=== PATIENT | female | born 1955 | race Caucasian/White ===

== ENCOUNTER → 2018-06-21 08:14 | Outpatient (CLI) | payer OTHER, SELFPAY ==
[2018-06-21 09:41] LABS: Add Manual Diff / Slide Review NO; Basophils Percent Auto 0.4 % (0-2); Eosinophils Percent Auto 1.8 % (2-4); Hematocrit 44.2 % (36-46); Lymphocytes Percent Auto 34.3 % (25-40); Mean Corpuscular Hemoglobin 31.7 PG (26-34); Mean Corpuscular Volume 93.3 fL (80-100); Monocytes Percent Auto 6.9 % (3-14); Neutrophils Absolute Auto 2800 /uL (3000-5900); Neutrophils Percent Auto 56.6 % (50-75); Platelet Count 183 X10^3/uL (150-400); Red Blood Cell Count 4.73 X10^6/uL (4.0-5.2); Red Cell Distribution Width 12.5 % (11.6-14.8)
[2018-06-21 10:01] LABS: Alanine Aminotransferase 24 IU/L (9-52); Albumin 4.3 g/dL (3.5-5.0); Albumin Globulin Ratio 1.4 (1.0-2.8); Alkaline Phosphatase 53 U/L (38-126); Aspartate Aminotransferase 33 IU/L (14-36); Bilirubin Total 0.6 mg/dL (0.2-1.3); Blood Urea Nitrogen 20 mg/dL (7-17); Calcium 9.2 mg/dL (8.4-10.2); Carbon Dioxide 32 mmol/L (22-32); Chloride 103 mmol/L (98-107); Cholesterol 244 mg/dL (140-199); Estimated Glomerular Filt Rate > 60.0 mL/min (>60); Glucose 89 mg/dL (80-110); HDL Cholesterol 76 mg/dL (40-60); HEMOLYSIS < 15 (0-50); LDL Cholesterol Calculated 150 mg/dL (<100); Sodium 143 mmol/L (137-145); Total Protein 7.3 g/dL (6.3-8.2); Triglycerides 90 mg/dL (35-150)
[2018-06-21 10:26] LABS: Thyroid Stimulating Hormone 2.34 uIU/mL (0.47-4.68)
== END ==
PROVIDERS: Family Provider Physician Assistant; PCP Physician Assistant; Visit Provider Naturopath
DX: M81.0 Age-related osteoporosis without current pathological fracture (principal); Z00.00 Encounter for general adult medical examination without abnormal findings
CPT/HCPCS: 36415; 80053; 80061; 84443; 85025

== ENCOUNTER → 2018-06-22 13:14 | Outpatient (CLI) | payer OTHER, SELFPAY | PROVIDERS: Family Provider Physician Assistant; PCP Physician Assistant; Visit Provider Naturopath | DX: M81.0 Age-related osteoporosis without current pathological fracture (principal); Z78.0 Asymptomatic menopausal state | CPT/HCPCS: 77080 ==

== ENCOUNTER → 2018-09-01 15:31 | Outpatient (CLI) | payer OTHER, SELFPAY ==
--- NOTE | 2018-09-01 | DI.MG.S_ITS ---
BILATERAL DIGITAL SCREENING MAMMOGRAM 3D/2D WITH CAD: 09/01/2018 CLINICAL: Routine screening. Comparison is made to exams dated: 08/26/2014 mammogram and 09/29/2011 mammogram - [facility]. There are scattered fibroglandular elements in both breasts. Current study was also evaluated with a Computer Aided Detection (CAD) system. No significant masses, calcifications, or other findings are seen in either breast. There has been no significant interval change. IMPRESSION: NEGATIVE There is no mammographic evidence of malignancy. A 1 year screening mammogram is recommended. This exam was interpreted at Station ID: [id number]. NOTE: For mammograms, a report in lay terms will be sent to the patient. Approximately 15% of breast malignancies will not be visualized mammographically. In the management of a palpable breast mass, a negative mammogram must not discourage biopsy of a clinically suspicious lesion. Electronically Signed By: Mono guerrero/jenise:09/01/2018 16:17:21 letter sent: Normal Exam ACR BI-RADS Category 1: Negative 3341F
== END ==
PROVIDERS: Visit Provider Naturopath
DX: Z12.31 Encounter for screening mammogram for malignant neoplasm of breast (principal)
CPT/HCPCS: 77063; 77067

== ENCOUNTER → 2020-09-24 08:06 | Outpatient (CLI) | payer MEDICARE, OTHER, SELFPAY ==
--- NOTE | 2020-09-24 | DI.MG.S_ITS ---
BILATERAL DIGITAL SCREENING MAMMOGRAM 3D/2D WITH CAD: 09/24/2020 CLINICAL: Routine screening. Comparison is made to exams dated: 09/01/2018 mammogram - [facility], 08/26/2014 mammogram, and 09/29/2011 mammogram - [facility]. There are scattered fibroglandular elements in both breasts. Current study was also evaluated with a Computer Aided Detection (CAD) system. No significant masses, calcifications, or other findings are seen in either breast. There has been no significant interval change. IMPRESSION: NEGATIVE There is no mammographic evidence of malignancy. A 1 year screening mammogram is recommended. This exam was interpreted at Station ID: [id number]. NOTE: For mammograms, a report in lay terms will be sent to the patient. Approximately 15% of breast malignancies will not be visualized mammographically. In the management of a palpable breast mass, a negative mammogram must not discourage biopsy of a clinically suspicious lesion. Electronically Signed By: Rodney Walker M.D., jr/jenise:09/24/2020 11:59:49 letter sent: Normal Exam ACR BI-RADS Category 1: Negative 3341F
== END ==
PROVIDERS: PCP Naturopath; Referring Provider Naturopath; Visit Provider Naturopath
DX: Z12.31 Encounter for screening mammogram for malignant neoplasm of breast (principal)
CPT/HCPCS: 77063; 77067

== ENCOUNTER → 2020-11-13 07:16 | Outpatient (CLI) | payer MEDICARE, OTHER, SELFPAY ==
[2020-11-13 07:58] LABS: Hematocrit 44.6 % (36-46); Hemoglobin 14.8 g/dL (12.0-16.0); Mean Corpuscular HGB Conc 33.2 % (30-36); Mean Corpuscular Hemoglobin 31.3 PG (26-34); Mean Corpuscular Volume 94.3 fL (80-100); Platelet Count 169 X10^3/uL (150-400); Red Blood Cell Count 4.73 X10^6/uL (4.0-5.2); Red Cell Distribution Width 12.9 % (11.6-14.8); White Blood Cell Count 4.3 X10^3/uL (4.5-11.0)
[2020-11-13 08:10] LABS: Alanine Aminotransferase 19 IU/L (<35); Albumin 4.3 g/dL (3.5-5.0); Albumin Globulin Ratio 1.7 (1.0-2.8); Alkaline Phosphatase 47 U/L (38-126); Aspartate Aminotransferase 33 IU/L (14-36); BUN Creatinine Ratio 19.2 (6-22); Bilirubin Total 0.4 mg/dL (0.2-1.3); Blood Urea Nitrogen 15 mg/dL (7-17); Calcium 9.6 mg/dL (8.4-10.2); Carbon Dioxide 29 mmol/L (22-32); Chloride 106 mmol/L (98-107); Cholesterol 256 mg/dL (140-199); Estimated Glomerular Filt Rate > 60.0 mL/min (>60); Globulin 2.5 g/dL (1.7-4.1); Glucose 91 mg/dL (80-110); HDL Cholesterol 88 mg/dL (40-60); HEMOLYSIS < 15 (0-50); LDL Cholesterol Calculated 155 mg/dL (<100); Potassium 4.3 mmol/L (3.4-5.1); Sodium 140 mmol/L (137-145); Total Protein 6.8 g/dL (6.3-8.2); Triglycerides 66 mg/dL (35-150)
[2020-11-13 08:41] LABS: TSH w/ Reflex to FT4 2.23 uIU/mL (0.47-4.68)
== END ==
PROVIDERS: PCP Registered Nurse Diabetes Educator; Referring Provider Registered Nurse Diabetes Educator; Visit Provider Registered Nurse Diabetes Educator
DX: Z00.00 Encounter for general adult medical examination without abnormal findings (principal)
CPT/HCPCS: 36415; 80053; 80061; 84443; 85027

== ENCOUNTER → 2020-11-19 13:14 | Outpatient (CLI) | payer MEDICARE, OTHER, SELFPAY ==
--- NOTE | 2020-11-19 13:16 | DI.RAD.S_ITS ---
PROCEDURE: XR DEXA AXIAL SKELETON INDICATIONS: hx osteoporosis COMPARISON: [facility], CR, XR DEXA AXIAL SKELETON, 06/22/2018, 13:49. FINDINGS: This blank DEXA report has been sent in error by the PACS system. The correct and complete report will be forthcoming in 1-2 days. Thank you for your patience and understanding. Dictated by: Ayanna Cooper MD, PhD on 11/19/2020 at 17:28 Approved by: Ayanna Cooper MD, PhD on 11/19/2020 at 17:28
== END ==
PROVIDERS: PCP Registered Nurse Diabetes Educator; Referring Provider Registered Nurse Diabetes Educator; Visit Provider Registered Nurse Diabetes Educator
DX: M81.0 Age-related osteoporosis without current pathological fracture (principal); Z78.0 Asymptomatic menopausal state
CPT/HCPCS: 77080

== ENCOUNTER → 2021-11-11 12:54 | Outpatient (CLI) | payer MEDICARE, OTHER, SELFPAY | PROVIDERS: PCP Registered Nurse Diabetes Educator; Referring Provider Registered Nurse Diabetes Educator; Visit Provider Registered Nurse Diabetes Educator | DX: M81.0 Age-related osteoporosis without current pathological fracture (principal); Z78.0 Asymptomatic menopausal state | CPT/HCPCS: 77080 ==

== ENCOUNTER → 2021-12-04 07:36 | Outpatient (CLI) | payer MEDICARE, OTHER, SELFPAY ==
[2021-12-04 08:26] LABS: Cholesterol 243 mg/dL (140-199); HDL Cholesterol 82 mg/dL (40-60); LDL Cholesterol Calculated 142 mg/dL (<100); Triglycerides 96 mg/dL (35-150)
== END ==
PROVIDERS: PCP Registered Nurse Diabetes Educator; Referring Provider Registered Nurse Diabetes Educator; Visit Provider Registered Nurse Diabetes Educator
DX: E78.00 Pure hypercholesterolemia, unspecified (principal)
CPT/HCPCS: 36415; 80061

== ENCOUNTER → 2023-09-28 16:07 | Outpatient (CLI) | payer MEDICARE, OTHER, SELFPAY ==
--- NOTE | 2023-09-28 16:09 | DI.MG.S_ITS ---
BILATERAL DIGITAL SCREENING MAMMOGRAM 3D/2D WITH CAD: 09/28/2023 CLINICAL: Routine screening. Comparison is made to exams dated: 09/24/2020 mammogram and 09/01/2018 mammogram - [facility]. There are scattered areas of fibroglandular density in both breasts (category b / 25%-50% glandular tissue). Current study was also evaluated with a Computer Aided Detection (CAD) system. No significant masses, calcifications, or other findings are seen in either breast. There has been no significant interval change. IMPRESSION: NEGATIVE There is no mammographic evidence of malignancy. A 1 year screening mammogram is recommended. Based on the Tyrer Cuzick model (a risk assessment model) the patient's lifetime risk is 3.5% and her 10 year risk is 1.9%. According to the ACR, ACS, and NCCN guidelines, an annual breast MRI exam along with mammogram is recommended if the patient's lifetime risk is 20% or greater. This exam was interpreted at Station ID: [id number]. NOTE: For mammograms, a report in lay terms will be sent to the patient. Approximately 15% of breast malignancies will not be visualized mammographically. In the management of a palpable breast mass, a negative mammogram must not discourage biopsy of a clinically suspicious lesion. Electronically Signed By: Gerson bain/jenise:09/29/2023 15:14:28 letter sent: Normal Exam ACR BI-RADS Category 1: Negative 3341F
== END ==
PROVIDERS: PCP Family Medicine; Referring Provider Family Medicine; Visit Provider Family Medicine
DX: Z12.31 Encounter for screening mammogram for malignant neoplasm of breast (principal); R92.323 Mammographic fibroglandular density, bilateral breasts
CPT/HCPCS: 77063; 77067

== ENCOUNTER → 2023-11-14 09:44 | Outpatient (CLI) | payer MEDICARE, OTHER, SELFPAY ==
--- NOTE | 2023-11-14 09:46 | DI.RAD.S_ITS ---
Bone Density Report Name: JESSICA YEPEZ Age: 68 Sex: Female Ethnicity: White Date of : 1955 Indication: postmenopausal osteoporosis; monitoring treatment; Referring Provider: DOLORES BARRETO Study: Bone densitometry was performed. Exam Date: November 14, 2023 Accession number: [id number] Bone Density: Region BMD T-score Z-score Classification AP Spine(L1, L2, L3) 0.740 -2.5 -0.6 Osteoporosis Femoral Neck (Left) 0.508 -3.1 -1.3 Osteoporosis Total Hip (Left) 0.548 -3.2 -1.8 Osteoporosis Femoral Neck (Right) 0.544 -2.7 -1.0 Osteoporosis Total Hip (Right) 0.579 -3.0 -1.5 Osteoporosis Total Hip Mean 0.563 -3.1 -1.7 Osteoporosis World Health Organization criteria for BMD impression classify patients as: Normal (T-score at or above -1.0), Osteopenia (T-score between -1.0 and -2.5), or Osteoporosis (T-score at or below -2.5). 10-year Fracture Risk: FRAX not reported because: Some T-score for Spine Total or Hip Total or Femoral Neck at or below -2.5 Treated for osteoporosis Previous Exams: -- Region Exam Age BMD T-score BMD Change BMD Change Date g/cm2 vs Baseline vs Previous -- AP Spine (L1-L3) 11/14/2023 68 0.740 -2.5 0.049 (7.1%)# -0.003 (-0.4%)# 11/11/2021 66 0.743 -2.5 0.052 (7.6%)# 0.004 (0.6%)# 11/19/2020 65 0.739 -2.5 0.048 (6.9%)* 0.048 (6.9%)* 06/22/2018 63 0.691 -3.0 Total Hip(Left) 11/14/2023 68 0.548 -3.2 -0.036 (-6.2%)# -0.016 (-2.9%)# 11/11/2021 66 0.564 -3.1 -0.020 (-3.4%)# 0.016 (3.0%)# 11/19/2020 65 0.548 -3.2 -0.036 (-6.2%)* -0.036 (-6.2%)* 06/22/2018 63 0.584 -2.9 Total Hip(Right) 11/14/2023 68 0.579 -3.0 0.006 (1.0%)# -0.010 (-1.7%)# 11/11/2021 66 0.589 -2.9 0.016 (2.8%)# 0.046 (8.5%)# 11/19/2020 65 0.543 -3.3 -0.030 (-5.3%)* -0.030 (-5.3%)* 06/22/2018 63 0.573 -3.0 -- *Denotes significance at 95% confidence level, LSC for AP Spine = 0.022 g/cm2, LSC for Total Hip = 0.027 g/cm2 Rate of change results reflect vertebral levels common to all scans # Denotes dissimilar scan types or analysis methods Impression: The patient has osteoporosis, based on the Left Total Hip T-score. No significant bone loss was observed. Discussion: PATIENT UNDER TREATMENT WITH NO SIGNIFICANT BMD LOSS SINCE LAST EXAM. In an untreated patient, BMD typically declines with age. A lack of decline or gain is usually a sign that treatment is efficacious and fracture risk is reduced. It is important to ask patients whether they are taking their medications and to encourage continued and appropriate compliance with their osteoporosis therapies to reduce fracture risk. It is also important to review their risk factors and encourage appropriate calcium and vitamin D intakes, exercise, fall prevention and other lifestyle measures. Follow-Up: Consider a repeat BMD and Vertebral Fracture Assessment (VFA) exam in 2 years or sooner if medically necessary, to reassess this patient's status. Reported by: DAJUAN MCCRACKEN M.D. on 11/14/2023 10:13:00 AM.
== END ==
LOC: RAD 09:45
PROVIDERS: PCP Family Medicine; Referring Provider Family Medicine; Visit Provider Family Medicine
DX: M81.0 Age-related osteoporosis without current pathological fracture (principal); N95.9 Unspecified menopausal and perimenopausal disorder
CPT/HCPCS: 77080

== ENCOUNTER → 2023-11-23 07:53 | Outpatient (CLI) | payer MEDICARE, OTHER, SELFPAY ==
[2023-11-23 09:47] LABS: Alanine Aminotransferase 23 IU/L (<35); Albumin 3.8 g/dL (3.5-5.0); Albumin Globulin Ratio 1.4 (1.0-2.8); Alkaline Phosphatase 52 U/L (38-126); Aspartate Aminotransferase 32 IU/L (14-36); BUN Creatinine Ratio 21.1 (6-22); Bilirubin Total 0.5 mg/dL (0.2-1.3); Blood Urea Nitrogen 16 mg/dL (7-17); Calcium 9.1 mg/dL (8.4-10.2); Carbon Dioxide 28 mmol/L (22-32); Chloride 108 mmol/L (98-107); Cholesterol 229 mg/dL (140-199); Estimated Glomerular Filt Rate > 60 mL/min (>60); Globulin 2.7 g/dL (1.7-4.1); Glucose 88 mg/dL (80-110); HDL Cholesterol 85 mg/dL (40-60); HEMOLYSIS < 15 (0-50); LDL Cholesterol Calculated 134 mg/dL (<100); Potassium 4.7 mmol/L (3.4-5.1); Sodium 138 mmol/L (137-145); Total Protein 6.5 g/dL (6.3-8.2); Triglycerides 49 mg/dL (35-150)
[2023-11-23 09:52] LABS: High Sensitivity CRP - Cardiac 0.8 mg/L (1.0-3.0)
[2023-11-23 10:16] LABS: TSH w/ Reflex to FT4 1.79 uIU/mL (0.47-4.68)
== END ==
LOC: LAB 07:54
PROVIDERS: PCP Family Medicine; Referring Provider Family Medicine; Visit Provider Family Medicine
DX: E78.00 Pure hypercholesterolemia, unspecified (principal); M81.0 Age-related osteoporosis without current pathological fracture; L65.9 Nonscarring hair loss, unspecified
CPT/HCPCS: 36415; 80053; 80061; 84443; 86140

== ENCOUNTER → 2024-12-31 07:20 | Outpatient (CLI) | payer MEDICARE, OTHER, SELFPAY ==
[2024-12-31 08:15] LABS: Hematocrit 42.7 % (36-46); Hemoglobin 14.4 g/dL (12.0-16.0); Mean Corpuscular HGB Conc 33.8 % (30-36); Mean Corpuscular Hemoglobin 31.7 PG (26-34); Platelet Count 174 X10^3/uL (150-400); Red Blood Cell Count 4.54 X10^6/uL (4.0-5.2); Red Cell Distribution Width 13.3 % (11.6-14.8); White Blood Cell Count 4.2 X10^3/uL (4.5-11.0)
[2024-12-31 08:34] LABS: Alanine Aminotransferase 28 IU/L (<35); Albumin 4.2 g/dL (3.5-5.0); Albumin Globulin Ratio 1.8 (1.0-2.8); Alkaline Phosphatase 53 U/L (38-126); Aspartate Aminotransferase 39 IU/L (14-36); Bilirubin Total 0.6 mg/dL (0.2-1.3); Blood Urea Nitrogen 17 mg/dL (7-17); Calcium 9.2 mg/dL (8.4-10.2); Carbon Dioxide 27 mmol/L (22-32); Chloride 107 mmol/L (98-107); Cholesterol 240 mg/dL (140-199); Estimated Glomerular Filt Rate > 60 mL/min (>60); Globulin 2.4 g/dL (1.7-4.1); Glucose 89 mg/dL (70-99); HDL Cholesterol 88 mg/dL (40-60); HEMOLYSIS < 15 (0-50); LDL Cholesterol Calculated 138 mg/dL (<100); Potassium 4.4 mmol/L (3.4-5.1); Sodium 139 mmol/L (137-145); Total Protein 6.6 g/dL (6.3-8.2); Triglycerides 71 mg/dL (35-150)
[2024-12-31 08:49] LABS: Follicle Stimulating Hormone 20.8 mIU/mL
[2024-12-31 09:05] LABS: Testosterone 42.5 ng/dL (5.71-77.0)
[2025-01-01 05:39] LABS: CRP, High Sensitivity 1.29 mg/L (0.00-3.00)
[2025-01-01 07:36] LABS: Insulin Level Total 2.5 uIU/mL (2.6-24.9)
[2025-01-03 13:13] LABS: N-telo/Creat. Ratio 15 (0-89); N-telopeptide 172 nmol BCE (Not Estab.)
[2025-01-04 15:10] LABS: Estradiol, Sensitive 88.3 pg/mL (.)
== END ==
PROVIDERS: PCP Family Medicine; Referring Provider Family Medicine; Visit Provider Family Medicine
DX: E78.00 Pure hypercholesterolemia, unspecified (principal); M81.0 Age-related osteoporosis without current pathological fracture; Z00.01 Encounter for general adult medical examination with abnormal findings; N95.1 Menopausal and female climacteric states; E88.810 Metabolic syndrome; E66.9 Obesity, unspecified
CPT/HCPCS: 36415; 80053; 80061; 82306; 82523; 82627; 82670; 83001; 83525; 84403; 85027; 86140

== ENCOUNTER → 2025-01-09 14:27 | Outpatient (CLI) | payer MEDICARE, OTHER, SELFPAY ==
--- NOTE | 2025-01-09 14:29 | DI.RAD.S_ITS ---
PROCEDURE: XR DEXA AXIAL SKELETON INDICATIONS: breast cancer screening COMPARISON: [facility], CR, XR DEXA AXIAL SKELETON, 11/14/2023, 10:01. FINDINGS: Lumbar Spine: Bone mineral density 0.810 (previously 0.740) g/cm2, T score -1.9 (previously -2.5). Left Femoral Neck: Bone mineral density 0.559 (previously 0.508) g/cm2, T score -2.6 (previously -3.1). Left Hip: Bone mineral density 0.598 (previously 0.548) g/cm2, T score -2.8 (previously -3.2). Fracture Risk Calculation (when applicable): 10-year fracture risk of a major osteoporotic fracture 15 percent and of a hip fracture 3.8 percent. (T score greater or equal to -1.0 to: NORMAL) (T score from -1.1 to -2.4: OSTEOPENIA) (T score less than or equal to -2.5: OSTEOPOROSIS) IMPRESSION: Osteoporosis--- recommend repeat DEXA in 2 years or less for reassessment of response to treatment. Follow-up guidelines as follows: Osteoporosis: Consider a repeat DEXA and Vertebral Fracture Assessment (VFA) exam in 2 years or sooner if medically necessary, to reassess this patient's status. Osteopenia: Consider a repeat DEXA in 2-3 years to reassess this patient's status, or if there is a new clinical indication. Normal: Consider a repeat DEXA in 5 years or sooner, or if there is a new clinical indication. All treatment decisions require clinical judgment and consideration of individual patient factors, including patient preferences, comorbidities, previous drug use, risk factors not captured in the FRAX model (e.g., frailty, falls, vitamin D deficiency, increased bone turnover, interval significant decline in bone density ) and possible under- or over-estimation of fracture risk by FRAX. In addition, the NOF Guide recommends that FDA-approved medical therapies be considered in postmenopausal women and men age >= 50 years with a: * Hip or vertebral (clinical or morphometric) fracture * T-score of <=-2.5 at the spine or hip * Ten-year fracture probability by FRAX of >= 3% for hip fracture or >=20% for major osteoporotic fracture. Dictated by: Sundar Mariscal M.D. on 01/09/2025 at 21:30 Approved by: Sundar Mariscal M.D. on 01/09/2025 at 21:33
--- NOTE | 2025-01-09 14:39 | DI.MG.S_ITS ---
MM screening mammo BI: 01/09/2025. BI-RADS: 1 CLINICAL: 69-year old female for bilateral screening mammogram. Tyrer-Cuzick lifetime risk of 3.0%. No personal or first-degree family history of breast cancer. PRIOR EXAMS 09/28/2023, 09/24/2020, 09/01/2018. MAMMOGRAPHY TECHNIQUE: 2D and 3D (tomosynthesis) digital mammographic views obtained, with additional images as needed for full coverage. Current study was also evaluated with a Computer Aided Detection (CAD) system. DENSITY B. There are scattered areas of fibroglandular density. MAMMOGRAPHY FINDINGS Bilateral: No suspicious mass, asymmetry, microcalcification, or other abnormality seen. IMPRESSION: * No evidence of malignancy. RECOMMENDATIONS Bilateral * Annual screening mammography. OVERALL ASSESSMENT CATEGORY BI-RADS-1: Negative. The [employer] recommends annual screening mammography beginning at age 40 for women with average risk of breast cancer. ELECTRONICALLY SIGNED: Keshia Centeno M.D. on 01/14/2025 at 12:58:25 AM PT Interpreting Station ID: [id number]
== END ==
LOC: MAMMO 14:29
PROVIDERS: PCP Family Medicine; Referring Provider Family Medicine; Visit Provider Family Medicine
DX: M81.0 Age-related osteoporosis without current pathological fracture (principal); Z12.31 Encounter for screening mammogram for malignant neoplasm of breast; Z00.01 Encounter for general adult medical examination with abnormal findings; E78.00 Pure hypercholesterolemia, unspecified; N95.1 Menopausal and female climacteric states
CPT/HCPCS: 77063; 77067; 77080

== ENCOUNTER → 2025-03-20 12:56 | Outpatient (CLI) | payer MEDICARE, OTHER, SELFPAY ==
--- NOTE | 2025-03-20 12:57 | DI.US.S_ITS ---
PROCEDURE: US EXTREMITY NONVASC LOWER LT INDICATIONS: left anterior knee pain TECHNIQUE: Real-time scanning was performed of the medial left knee , with image documentation. COMPARISON: None. FINDINGS: At the area of concern, there is a 2.4 x 1.2 x 1.1 cm cystic structure. Popliteal vein unremarkable. IMPRESSION: Popliteal cyst Approved by: Cale Hernandez M.D. on 03/21/2025 at 15:16
== END ==
PROVIDERS: PCP Family Medicine; Referring Provider Family Medicine; Visit Provider Family Medicine
DX: M71.22 Synovial cyst of popliteal space [Baker], left knee (principal); M25.562 Pain in left knee
CPT/HCPCS: 76882

== ENCOUNTER 2025-07-08 15:17 | Emergency (ER) | payer MEDICARE, OTHER, SELFPAY ==
[2025-07-08 15:50] VITALS: BP 191/90; PULSE 64; RESP 18; TEMP 36.5; O2SAT 96
--- NOTE | 2025-07-08 15:56 | ED_ITS ---
HPI - General Adult General Chief complaint: Hypertension Stated complaint: High bp 192/119 Time Seen by Provider: 07/08/25 15:56 Source: patient Mode of arrival: Ambulatory History of Present Illness HPI narrative: 70-year-old woman recently diagnosed with hypertension started on 10 mg of lisinopril. Notes that over the last month her blood pressures have been high with numbers that she is measured at home as high as 190/110. In the emergency department she is 190/80. She is having no symptoms with this. No chest pain, exertional dyspnea, lower extremity edema, headaches, vision changes, any acute neurologic findings. She is tolerating the 10 mg of lisinopril without difficulty. Related Data Home Medications ?Medication ?Instructions ?Recorded ?Confirmed calcium 600 mg (as 1 sgl PO #0 caps 06/24/16 carbonate)-vitamin D3 10 mcg (400 unit) capsule (Calcium with Vitamin D3) carditone PO 10/20/20 04/10/25 Previous Rx's ?Medication ?Instructions ?Recorded estradiol 0.025 mg/24 hr weekly 1 patch transdermal QW [place] #12 ea 04/10/25 transdermal patch progesterone micronized 100 mg 100 - 200 mg (1 - 2 x 1 00 mg) PO 04/19/25 capsule BEDTIME #180 caps lisinopril 10 mg tablet 10 mg PO DAILY #90 tabs 03/30 02/20 estradiol 0.01% (0.1 mg/gram) 1 g vaginal 3XW #42.5 gr ams 05/22/25 vaginal cream hydrochlorothiazide 12.5 mg capsule 12.5 mg PO DAILY # 30 caps 07/08/25 lisinopril 20 mg tablet 20 mg PO DAILY #30 tabs 06/29 Allergies Allergy/AdvReac Type Severity Reaction Status Date / Time No Known Drug Allergies Allergy Verified 07/08/25 15:53 Review of Systems Review of Systems Narrative: Pertinent positive and negative findings as per HPI Patient History Medical History Tick bite of female breast Wrist fracture, right Fracture of left distal radius Elevated LDL cholesterol level Rosacea Atrophic vaginitis Hearing loss Actinic keratosis (~2015) Osteoporosis (~2011) Mumps Measles Tinnitus (~2013) Surgical History Anesthesia History of section (~1976) S/P wrist surgery (~2008) S/P wrist surgery (~2015) Family History Father Hypertension Hyperlipidemia Mother Hypertension Stroke Social History marital status: number of children: 2 household members: spouse lives independently: Yes pets and animals: Yes current occupational exposures/hazards: No special leonila needs: No travel history: recent leisure activities: exercise, art, music, games and reading seatbelt use: always helmet use: Yes water heater temp set < 120 deg: Yes working smoke detector in home: Yes fire extinguisher in home: Yes carbon monox detector in home: Yes firearms in home: No do you feel safe at home: Yes second hand exposure: No alcohol intake: current (1 drink per week ) substance use type: does not use during the past year weight has: remained stable well-balanced diet: daily or most days daily servings fruits/ve or more times/day caffeine: Yes eating out: 1-3 times/week Type(s) of exercise: walking, aerobic, bicycling, regular exercise, resistance training, running, yoga and advised to exercise at least 150 min/week (moderate intensity aerobic) frequency: 3-4 times per week duration: 45-60 minutes/day Exam Initial Vital Signs Initial Vital Signs: Vital Signs Temperature 97.7 F 07/08/25 15:50 Pulse Rate 64 07/08/25 15:50 Respiratory Rate 18 07/08/25 15:50 Blood Pressure 191/90 H 07/08/25 15:50 Pulse Oximetry 96 07/08/25 15:50 Oxygen Delivery Method Room Air 07/08/25 15:50 General: Alert appropriate in no acute distress Respiratory: Able to speak in full sentences, no obvious respiratory distress Cardiac: Regular rate and rhythm, no murmurs appreciated Skin: No obvious rashes, warm and dry Neurologic: Grossly intact no obvious asymmetries or abnormalities Psych: appropriate insight and affect, cooperative Course Vital Signs Vital signs: Vital Signs - 8 hr 07/08/25 15:50 Temperature 97.7 F Pulse Rate 64 Respiratory Rate 18 Blood Pressure 191/90 H Pulse Oximetry 96 Oxygen Delivery Method Room Air Medical Decision Making MDM Narrative Medical decision making narrative: 70-year-old woman with recently diagnosed hypertension inadequately controlled with 10 mg of lisinopril. Spoke with a screening nurse from her primary care physician's office described no motor she has been seeing and was recommended that she come to the emergency department. In light of the fact that she is completely asymptomatic and has a follow up coming with her primary care physician I opted to do no additional treatment but did recommend that she increase her lisinopril to 20 mg daily and added 12.5 mg of hydrochlorothiazide. Recommended daily blood pressure checks and a 2 week follow up with her primary care physician to see how her body is responding to these medications and to consider basic metabolic panel to check potassium and renal function. Questions were answered and she is safe for discharge Discharge Plan Departure Patient Disposition: Home Clinical Impression: Hypertension Instructions: DI for High Blood Pressure Activity Restrictions/Additional Instructions: Thank you for coming in as suggsted today. Your blood pressure in the ER was 180/90. This is too high, but when it is asymptomatic, there is nothing that needs to be done emergently. We do however need to increase her medications. Your goal is gradually getting your blood pressure down to 120/70. Tonight, I am going to ask you to take 2nd dose of your lisinopril to make a total of 20 mg of lisinopril today. I have sent a prescription for 20 mg lisinopril tablets as well as 12.5 mg of hydrochlorothiazide to [facility]. The hydrochlorothiazide is a mild diuretic, I would recommend taking it in the morning. Your body does get use to this within a week or so Please make sure that you are checking regular blood pressure is about 2-3 hours after you take your lisinopril and hydrochlorothiazide. You need to be sitting, relaxing and not have your legs crossed when you do check your blood pressure. You need an appointment with Dr. Valentin in about 2 weeks to follow up on the change in blood pressure medications If you find that you are getting worse or develop any new symptoms, please feel free to return to the emergency department for further evaluation. Prescriptions: New lisinopril 20 mg tablet 20 mg PO DAILY Qty: 30 0RF hydrochlorothiazide 12.5 mg capsule 12.5 mg PO DAILY Qty: 30 0RF No Action calcium carbonate-vitamin D3 [Calcium 600 with Vitamin D3] 600 MG/200 IU capsule 1 sgl PO Qty: 0 progesterone micronized 100 mg capsule 100 - 200 mg PO BEDTIME Qty: 180 3RF estradiol 0.01 % (0.1 mg/gram) cream 1 g vaginal 3XW Qty: 42.5 5RF carditone PO lisinopril 10 mg tablet 10 mg PO DAILY Qty: 90 3RF estradiol 0.025 mg/24 hr patch weekly 1 patch transdermal QWEEK Qty: 12 3RF Referrals: Kandice Valentin DO [Primary Care Provider, Medical] Stand Alone Forms: Patient Portal/API
== END 2025-07-08 16:33 | disposition home or self-care (01) ==
PROVIDERS: Emergency Provider Emergency Medicine; PCP Family Medicine
DX: I10 Essential (primary) hypertension (principal)
CPT/HCPCS: 99281